=== PATIENT | female | born 1975 | race Caucasian/White ===

== ENCOUNTER 2017-06-24 12:33 | Emergency (ER) | payer BC ==
[~2017-06-24] VITALS: Wt 90.0 kg
[2017-06-24] MEDS ORDERED: IBUPROFEN 600 MG TAB PO ONE (13:30)
--- NOTE | 2017-06-24 14:21 | RADRPT ---
PROCEDURE: Lumbar spine series CLINICAL INDICATION: Trauma and pain. TECHNIQUE: 3 views. AP, full lateral, and lateral coned L5-S1. COMPARISON: None FINDINGS: The pedicles are intact. Lumbar vertebral heights are well maintained. There is transitional anatomy with partial sacralization of L5 and articulation of the right transve rse process of L5 with the sacrum. There is moderate L5-S1 disc space narrowing. No significant spondylosis/degenerative enthesopathy is noted. No subluxations are noted. IMPRESSION: 1. Transitional anatomy as detailed above. 2. Moderate L5-S1 disc space narrowing. RPTAT: HGSG .Ebenezer Purcell MD, MD Date Time Electronically viewed and signed by .Ebenezer Purcell MD, on 06/24/2017 14:21 .G/
--- NOTE | 2017-06-24 14:23 | RADRPT ---
PROCEDURE: XR Hip. CLINICAL INDICATION: Fall. Right hip pain. TECHNIQUE: AP and frog lateral views of the right hip were performed. COMPARISON: None. FINDINGS: There is normal mineralization and alignment. No fracture or osseous lesion is identified. There are normal joints without evidence of arthritis or effusion. Minimal acetabular spurring. The soft tiss ues are unremarkable. IMPRESSION: 1.Unremarkable right hip. Hip fractures may be occult to x-ray imaging and CT or MRI may be conside red for further evaluation if there is high clinical suspicion for fracture. RPTAT:AAJJ Physician Adam Date Time Electronically viewed and signed by Physician Adam on 06/24/2017 14:23 HIMANSHU/
--- NOTE | 2017-06-24 14:54 | ERD ---
ER Documentation Chief Complaint Chief Complaint RIGHT LEG PAIN FROM A GLF TODAY. NO NECK OR BACK PAIN . NO DEFORMITY HPI This 42-year-old female presents with complaints of low back pain and right leg pain after slipping on a wet [facility] [place] [facility] today. She did the splits. Pain is primarily in the posterior right thigh right buttocks and in the lower back. She denies any weakness, bowel or bladder incontinence. She did fall onto her face but denies any headache, neck pain, weakness, additional complaints. ROS All systems reviewed and are negative except as per history of present illness. Medications Home Meds Active Scripts Tramadol HCl (Tramadol HCl) 50 Mg Tablet, 50 MG PO Q4 Y for PAIN, #15 TAB Prov:PIPO RM MD 06/24/17 Ibuprofen* (Motrin*) 600 Mg Tab, 600 MG PO Q6, #20 TAB Prov:PIPO RM MD 06/24/17 PMhx/Soc Medical and Surgical Hx: pt denies Medical Hx, pt denies Surgical Hx Hx Alcohol Use: No Hx Substance Use: No Hx Tobacco Use: No Smoking Status: Never smoker Physical Exam Vitals Vital Signs Date Time Temp Pulse Resp B/P Pulse Ox O2 Delivery O2 Flow Rate FiO2 06/24/17 12:43 98.3 89 20 150/84 98 Physical Exam Const: [] Alert, [id number]. Head: Atraumatic Eyes: Normal Conjunctiva ENT: Normal External Ears, Nose and Mouth. Neck: Full range of motion..~ No meningismus. Resp: Clear to auscultation bilaterally Cardio: Regular rate and rhythm, no murmurs Abd: Soft, non tender, non distended. Normal bowel sounds Skin: No petechiae or rashes Back: No midline or flank tenderness mild tenderness primarily in the right L4-5 paraspinous muscles. No midline tenderness or deformities. Is in the right posterior thigh and initial tuberosity area. No pain which is significant with passive range of motion abduction or external rotation of the right hip. No calf swelling or Homans sign or deformities. Ext: No cyanosis, or edema Neur: Awake and alert Psych: Normal Mood and Affect Results 24 hrs Current Medications Medications (Trade) Dose Ordered Sig/Pasha Route PRN Reason Start Time Stop Time Status Last Admin Dose Admin Ibuprofen (Motrin) 600 mg ONCE ONCE PO 06/24/17 13:30 06/24/17 13:32 DC 06/24/17 13:34 Procedures/MDM X-ray right hip 2V Interpreted by me: Bones: No fracture Joints: No dislocation Foreign body: None impression-normal right hip x-ray X-ray LS-Spine 3V Interpreted by me: Bones: No fracture, or lytic lesions Joints: No dislocation Foreign body: None impression-no acute findings on lumbar spine x-ray Given ibuprofen for pain. She was noted to be ambulatory with minimal discomfort so crutches were deferred. Patient has signs and symptoms of right thigh, buttock and lumbar strain after mechanical fall today. Patient is ambulatory with minimal discomfort and doubt occult fracture there is no evidence of dislocation. Patient was discharged home with parents for rest, crutches ibuprofen for pain and primary care follow- up. The patient was stable with no new complaints during the ER course. Clinically, there is no current evidence to suggest meningitis, sepsis, acute abdomen, pneumonia, acute coronary syndrome, pulmonary embolism, or any other emergent condition appearing to require further evaluation or hospitalization. The patient should certainly return for any new or worsening symptoms per the aftercare instructions. They should otherwise follow-up with her primary care doctor for reevaluation this week. Departure Diagnosis: Primary Impression: Strain of hip Encounter type: initial encounter Laterality: right Qualified Code: S76.011A - Strain of right hip, initial encounter Condition: Stable PIPO RM MD Jun 24, 2017 14:54
[2017-06-24] MEDS ORDERED: TRAM50TA2 PO (14:55)
[2017-06-24] MEDS ORDERED: IBUP-1542 PO (14:55)
== END 2017-06-24 15:20 | disposition home or self-care (01) ==
LOC: FTE 12:33
DX: S76.011A Strain of muscle, fascia and tendon of right hip, initial encounter (principal); W01.0XXA Fall on same level from slipping, tripping and stumbling without subsequent striking against object, initial encounter; Y92.9 Unspecified place or not applicable
CPT/HCPCS: 72100; 73510